=== PATIENT | male | born 1970 ===

== ENCOUNTER 2017-01-06 05:48 | Day surgery (SDC) | payer MEDICARE, MEDICAID ==
--- NOTE | 2017-01-05 20:30 | Pre-op HX & Phy Repo 2 SIG ---
DATE OF ADMISSION: 01/06/2017 DATE OF SURGERY: 01/06/2017. PREOPERATIVE DIAGNOSIS: Vitreous hemorrhage, left eye. BRIEF NOTE: This is a first [facility] admission for Mr. Rivera who is a very kind 46-year-old gentleman, who complained of sudden loss of vision in the left eye several weeks ago. On examination, he was noted to have severe proliferative diabetic retinopathy with a large vitreous hemorrhage with subhyaloidal components. Because this is limiting his mobility, he is admitted for a vitrectomy. PAST OCULAR HISTORY: Remarkable for cataract surgery on the left eye in 2014 and the right eye in 2013. He has had panretinal laser in both eyes along the way. He has a history of diabetes for at least 17 years. He is maintained on glipizide, metformin, and insulin. SOCIAL HISTORY: He does not smoke or drink. ALLERGIES: He has no known allergies. PHYSICAL EXAMINATION: Best vision at the time of admission was 20/100-1 in the right eye and hand motions were 6 feet in the left. The pressures were 12 and 10. The anterior segment on the right showed sluggish reactivity. The left was previously dilated. Posterior chamber lenses were seen well positioned in the right. Fundus examination of the right eye showed optic disc neovascularization with some degree of proliferative diabetic retinopathy and mild preretinal fibrosis. There are extensive laser scars. The left fundus showed a dense vitreous hemorrhage with subhyaloidal hemorrhages. An ultrasound done on the left eye showed a vitreous hemorrhage on the left with some areas of preretinal fibrosis. There were no masses. ASSESSMENT: Severe proliferative diabetic retinopathy, both eyes with vitreous hemorrhage, left eye. PLAN: The plan is to perform a pars plana vitrectomy on the left eye with membrane dissection, endolaser, and an Avastin injection. The risks and benefits of surgery were gone over with the patient including the potential infection, hemorrhage, glaucoma, and remote possibility of loss of the eye. The risk of anesthesia was discussed. The patient understands and consents to surgery, which will be performed on tomorrow morning. Yo Garcia M.D. DR: CARMELINA JOB#: [id number] CC:
[~2017-01-06] VITALS: Ht 167.6 cm; Wt 81.6 kg
[2017-01-06] VITALS (10 sets, daily range): BP systolic 80–127; BP diastolic 56–88
[~2017-01-06 05:48] MED LIST: Cyclopentolate 1% Opth Sol ONE; Flurbiprofen 0.03% Opth Sol 2.5ml ONE; Gatifloxacin Opth Solution 0.5% ONE; Phenylephrine 2.5% Op Soln ONE
[2017-01-06] MEDS ORDERED: Avastin 10mg Inj IVITRE ONE (06:00)
[2017-01-06] MEDS ORDERED: Pred Forte 1% Opth Susp 1ml LEFT EYE SCH (06:00)
--- NOTE | 2017-01-06 06:14 | Pre-Procedure Note/Attestation ---
Pre-Procedure Note/Attestation Complete Prior to Procedure Planned Procedure: left Procedure Narrative: PPV, membrane peel, endolaser, Avastin injection Left eye Indications for Procedure Pre-Operative Diagnosis: Vitreous hemorrhage with posterior traction L eye Attestation I attest that I discussed the nature of the procedure; its benefits; risks and complications; and alternatives (and the risks and benefits of such alternatives ), prior to the procedure, with the patient (or the patient's legal technology sales representative). I attest that, if there was a reasonable possibility of needing a blood transfusion, the patient (or the patient's legal technology sales representative) was given the [facility] standardized written summary, pursuant to the Kiel Brooks Blood Safety Act ([place] Health and Safety Code # 1645, as amended). I attest that I re-evaluated the patient just prior to the surgery and that there has been no change in the patient's H&P, except as documented below: LASHAWN DAMON Jan 06, 2017 06:14
[2017-01-06] MEDS ORDERED: Norco 5mg/325mg tab ORAL PRN ×3 (06:15→13:52)
[2017-01-06] MEDS: Flurbiprofen 0.03% Opth Sol 2.5ml LEFT EYE SCH ×3 (06:17→06:57)
[2017-01-06] MEDS: Gatifloxacin Opth Solution 0.5% LEFT EYE SCH ×3 (06:17→06:57)
[2017-01-06] MEDS: Phenylephrine 2.5% Op Soln LEFT EYE SCH ×3 (06:17→06:57)
[2017-01-06] MEDS: Cyclopentolate 1% Opth Sol LEFT EYE SCH ×3 (06:17→06:56)
[2017-01-06] MEDS ORDERED: Kenalog-40 1ml Vial ONE (07:08)
[2017-01-06] MEDS ORDERED: BSS 500ml btl ONE (07:08)
[2017-01-06] MEDS ORDERED: Maxitrol Opth Oint 3.5gm ONE (07:09)
[2017-01-06] MEDS ORDERED: Kenalog-10 5ml Inj ONE (07:09)
[2017-01-06] MEDS ORDERED: Dexamethasone 4mg/ml vial ONE (07:09)
[2017-01-06] MEDS ORDERED: Tetracaine 0.5% Opth Soln ONE (07:09)
[2017-01-06] MEDS ORDERED: EPINEPHrine 1mg/1ml Amp ONE (07:09)
[2017-01-06] MEDS ORDERED: Lidocaine 2% MPF 5ml Vial INJ ONE (07:10)
[2017-01-06] MEDS ORDERED: Bupivacaine 0.75% 30ml vial INJ ONE (07:10)
[2017-01-06] MEDS ORDERED: BSS 15ml BTL ONE (07:10)
[2017-01-06] MEDS ORDERED: Sodium Hyaluronate 10 mg/ml 0.85ml ONE (07:10)
[2017-01-06] MEDS ORDERED: Povidone-Iodine 5% opth solution ONE (07:11)
[2017-01-06 07:19] LABS: BASOPHILS % (AUTO) 1.3 % (0.0-2.0); LYMPHOCYTES % (AUTO) 34.5 % (20.0-45.0); MEAN CORPUSCULAR HEMOGLOBIN 28.9 PG (27.0-31.0); MEAN CORPUSCULAR HGB CONC 34.1 G/DL (32.0-36.0); MEAN CORPUSCULAR VOLUME 85 FL (80-99); MEAN PLATELET VOLUME 7.5 FL (6.5-10.1); MONOCYTES % (AUTO) 9.7 % (1.0-10.0); NEUTROPHILS % (AUTO) 49.5 % (45.0-75.0); PLATELET COUNT 230 K/UL (150-450); RED BLOOD COUNT 4.38 M/UL (4.70-6.10); RED CELL DISTRIBUTION WIDTH 11.9 % (11.6-14.8); WHITE BLOOD COUNT 7.7 K/UL (4.8-10.8)
[2017-01-06] MEDS ORDERED: GLIPIZIDE5 MG ORAL (07:23)
[2017-01-06] MEDS ORDERED: METFORMIN HCL500 M1 ORAL (07:23)
[2017-01-06] MEDS ORDERED: HUMULIN N100 UNIT/1 SUBQ (07:23)
[2017-01-06 07:26] LABS: ANION GAP 11 (5-15); CALCIUM 10.1 mg/dL (8.6-10.2); CARBON DIOXIDE 28 mEQ/L (20-30); CHLORIDE 93 mEQ/L (98-107); CREATININE 1.2 mg/dL (0.7-1.2); GLOMERULAR FILTRATION RATE > 60 mL/min (>60); HEMOLYSIS 3; POTASSIUM 3.8 mEQ/L (3.4-4.9); SODIUM 132 mEQ/L (135-145)
[2017-01-06] MEDS ORDERED: NS Irrig 1000ml ONE (07:30)
[2017-01-06] MEDS ORDERED: LR 1000ml ONE (07:30)
[2017-01-06] MEDS ORDERED: Propofol 10mg/ml 20ml IV ONE (07:30)
[2017-01-06] MEDS ORDERED: Sterile Water Irrig 1000ml IRRIG ONE (07:30)
--- NOTE | 2017-01-06 08:19 | Anethesia Preoperative Eval ---
Anesthesia Pre-op PMH/ROS General Date of Evaluation: Jan 06, 2017 Time of Evaluation: 07:15 Anesthesiologist: jaimie ASA Score: ASA 3 Mallampati Score Class I : Soft palate, uvula, fauces, pillars visible Class II: Soft palate, uvula, fauces visible Class III: Soft palate, base of uvula visible Class IV: Only hard plate visible Mallampati Classification: Class I Anesthesia History: none Allergies: Coded Allergies: No Known Allergies (Unverified , 01/04/17) Past Medical History Endocrine: Reports: DM Anesthesia Pre-op Phys. Exam Physician Exam Last Vital Signs Date Time Temp Pulse Resp B/P Pulse Ox O2 Delivery O2 Flow Rate FiO2 01/06/17 07:01 97.7 95 20 122/88 98 Room Air Anesthesia Pre-op A/P Labs Hematology Test 01/06/17 06:50 White Blood Count 7.7 K/UL (4.8-10.8) Red Blood Count 4.38 M/UL (4.70-6.10) L Hemoglobin 12.6 G/DL (14.2-18.0) L Hematocrit 37.0 % (42.0-52.0) L Mean Corpuscular Volume 85 FL (80-99) Mean Corpuscular Hemoglobin 28.9 PG (27.0-31.0) Mean Corpuscular Hemoglobin Concent 34.1 G/DL (32.0-36.0) Red Cell Distribution Width 11.9 % (11.6-14.8) Platelet Count 230 K/UL (150-450) Mean Platelet Volume 7.5 FL (6.5-10.1) Neutrophils (%) (Auto) 49.5 % (45.0-75.0) Lymphocytes (%) (Auto) 34.5 % (20.0-45.0) Monocytes (%) (Auto) 9.7 % (1.0-10.0) Eosinophils (%) (Auto) 5.0 % (0.0-3.0) H Basophils (%) (Auto) 1.3 % (0.0-2.0) Chemistry Test 01/06/17 06:50 Sodium Level 132 mEQ/L (135-145) L Potassium Level 3.8 mEQ/L (3.4-4.9) Chloride Level 93 mEQ/L (98-107) L Carbon Dioxide Level 28 mEQ/L (20-30) Anion Gap 11 (5-15) Blood Urea Nitrogen 11 mg/dL (7-23) Creatinine 1.2 mg/dL (0.7-1.2) Estimat Glomerular Filtration Rate > 60 mL/min (>60) Glucose Level 415 mg/dL (74-106) H Calcium Level 10.1 mg/dL (8.6-10.2) Mena Mccann MD Jan 06, 2017 08:19
--- NOTE | 2017-01-06 09:09 | Brief Operative Note ---
Immediate Post Operative Note Operative Note Pre-op Diagnosis: Vitreous hemorrhage with posterior traction L eye Procedure: PPV, membrane peel, endolaser 468 spots, Kenalog, 3mg, Avastin 1.25mg L eye Post-op Diagnosis: same as pre-op Surgeon: mylene Supervisor Cooler Service: Pedrito Anesthesiologist: Devante Anesthesia: MAC Specimen: none Complications: none Condition: stable Estimated Blood Loss: none Drains: none Implant(s) used?: No LASHAWN DAMON Jan 06, 2017 09:09
--- NOTE | 2017-01-06 10:02 | Immediate Post-Op Evaluation ---
Immediate Post-Op Evalulation Immediate Post-Op Evalulation Procedure: left vitrectomy Date of Evaluation: Jan 06, 2017 Time of Evaluation: 10:02 Nausea: No Vomiting: No Given Within 1 Hr of Incision: Yes Mena Mccann MD Jan 06, 2017 10:02
--- NOTE | 2017-01-06 11:45 | Operative Note - Dictated ---
DATE OF OPERATION: 01/06/2017 PREOPERATIVE DIAGNOSIS: Vitreous hemorrhage with posterior traction, left eye. POSTOPERATIVE DIAGNOSIS: Vitreous hemorrhage with posterior traction, left eye. PROCEDURES: 1. Pars plana vitrectomy. 2. Membrane peel. 3. Endolaser. 4. Kenalog injection. 5. Avastin injection, left eye. SURGEON: Yo Garcia M.D. DOCKMASTER: Deven Major M.D. ANESTHESIA: Local sedation. ANESTHESIOLOGIST: Mena Mccann M.D. JUSTIFICATION FOR SURGERY: This is a 46-year-old gentleman with long history of diabetes, who developed massive vitreous hemorrhage in the left eye with a subhyaloidal clot. He was admitted for vitrectomy. BRIEF NOTE: The patient was brought to the operating room and placed on the OR table in supine position. After time-out was performed and agreed upon by the staff, and initial monitoring secured by anesthesia, retrobulbar and Van Lint blocks were given in the standard way. When the blocks had taken effect, he was prepped and draped in normal manner. A lid speculum was inserted into the left eye. Using the 23-gauge trocar system, cannulas were then placed in all except the inferonasal quadrant. Infusion was secured inferotemporally. Vitrectomy was then begun posterior to the lens implant. A central core vitrectomy was done to remove dense vitreous blood and this was extended peripherally leaving a small vitreous skirt. Posteriorly, there was noted to be a large clot loculated beneath the posterior hyaloid. With gentle dissection, the surface of the hyaloid was removed and the entire posterior hyaloid membrane dissected free. A posterior viewing lens was then inserted and using gentle suction and a membrane pick, the edges of the hyaloid's attachments to retina were isolated and dissected clean. Blood on the surface of the retina was gently evacuated with a blood pool aspirator and the suction cutter. Once the blood was removed, the Endolaser was brought into the eye and at power of 0.3 martínez and duration 0.2 seconds, a total of 468 lesions were applied in broadband covering lightly treated retina and surrounding areas of dissected traction. The macula was noted to be clean. Scleral depression was done. No peripheral breaks, tears, or detachments were seen. Kenalog, 3 mg was injected as well as Avastin 1.25 mg. The cannulas were removed and all wounds closed with 8-0 Vicryl suture. The eye was left normotensive. Subconjunctival Decadron and gentamicin were injected inferiorly and Maxitrol and atropine ointments were instilled. The eye was patched and shielded and the patient was taken to recovery in excellent condition. There were no complications. Please note that the anesthesiologist who performed the procedure was Mena Mccann M.D. Yo Garcia M.D. DR: Nahed JOB#: [id number] CC: Ivette Jett M.D.
--- NOTE | 2017-01-07 09:23 | 48 Hour Post Anesthesia Eval ---
Post Anesthesia Evaluation Procedure: left vitrectomy Date of Evaluation: Jan 07, 2017 Time of Evaluation: 09:23 Nausea: No Vomiting: No Mental Status/LOC: patient returned to baseline Follow-up care needed: ready to discharge Mena Mccann MD Jan 07, 2017 09:23
--- NOTE | 2017-01-07 09:45 | Cardiology Report ---
APPROVED REPORT EKG Measurement Heart [id number] Normal sinus rhythm Nonspecific T wave abnormality Prolonged QT Abnormal ECG
== END 2017-01-06 10:50 | disposition home or self-care (01) ==
LOC: SUR 05:48
DX: H43.12 Vitreous hemorrhage, left eye (principal); H43.822 Vitreomacular adhesion, left eye; E10.3592 Type 1 diabetes mellitus with proliferative diabetic retinopathy without macular edema, left eye; Z79.4 Long term (current) use of insulin; Z79.84 Long term (current) use of oral hypoglycemic drugs
CPT/HCPCS: 36415; 67042; 80048; 82962; 85025; 93005; J0171; J1100; J2704; J3301; J3470; J3490; J7120; J9035; 94003; 94150